=== PATIENT | female | born 1985 | race Caucasian/White ===

== ENCOUNTER 2018-08-09 09:51 | Emergency (ER) | payer OTHER ==
[2018-08-09] MEDS ORDERED: CEFTRIAXONE INJ 1000 MG VIAL IV ONE (10:52)
[2018-08-09] MEDS ORDERED: LIDOCAINE 1% INJ-PF (10 MG/ML) 30 ML SDV INJ ONE (10:53)
[2018-08-09] MEDS ORDERED: DOXYCYCLINE HYCLATE 100 MG TABLET PO ONE (11:54)
--- NOTE | 2018-08-09 11:55 | ER Document Report ---
ED Animal Bite - General Chief Complaint: Dog Bite Stated Complaint: DOG BITE Time Seen by Provider: 08/09/18 10:44 Notes: Patient is here for recheck of her injuries of the left face caused by a dog bite at work Sunday. She was holding the dog while blood was being drawn. She sustained a couple of deep wounds to the left lateral face and quite a few superficial scrapes. Patient went to the hospital in [place] where she had the wound sutured in 3 different locations with 4 sutures. She was placed on Augmentin which she started on Sunday night and has been taking it. It is the 875 Augmentin twice a day yesterday, she noted some puffiness of the left face but nothing else. This morning, her 3-year-old accidentally hit her left face and pus came out of 1 of the wounds. There is also significant increase in pain and redness and swelling of this area. TRAVEL OUTSIDE OF THE [place] IN LAST 30 DAYS: No - Related Data Allergies/Adverse Reactions: promethazine [From Phenergan] Allergy (Verified 08/10/18 22:20) Past Medical History - Social History Smoking Status: Current Some Day Smoker Chew tobacco use (# tins/day): No Frequency of alcohol use: Rare Drug Abuse: None Family History: Reviewed & Not Pertinent, Other Patient has suicidal ideation: No Patient has homicidal ideation: No Past Surgical History: Reports: Hx Thyroid Surgery, Hx Tonsillectomy Review of Systems - Review of Systems Notes: CONSTITUTIONAL : Denies fever. CARDIOVASCULAR: Denies chest pain. RESPIRATORY: Denies cough, chest congestion, or shortness of breath. GASTROINTESTINAL: Denies abdominal pain or nausea, vomiting, or diarrhea. GENITOURINARY: Denies difficulty or painful urinating, urinary frequency, blood in urine. Physical Exam - Vital signs Vitals: Temp Pulse Resp BP Pulse Ox 99.0 F 66 16 123/64 100 08/09/18 09:56 08/09/18 09:56 08/09/18 09:56 08/09/18 09:56 08/09/18 09:56 Interpretation: Normal. No: Febrile Notes: PHYSICAL EXAMINATION: GENERAL: Well-appearing, no acute distress. HEAD: Atraumatic, normocephalic. Left face with multiple small superficial abrasions but 3 deeper appearing wounds about 1 cm each in length and each of them has a suture with 1 of them having 2 sutures. NECK: Normal range of motion, supple. LUNGS: Breath sounds clear and equal bilaterally. HEART: Regular rate and rhythm without murmurs heard. ABDOMEN: Soft, nontender. No guarding or rebound or masses felt. Course - Re-evaluation Re-evalutation: 08/09/18 18:35 Patient was given a gram of Rocephin IV. Also started on doxycycline 100 mg in the ED. Offer the patient pain medication several times, but she has a 3-year-old infant that she has to get from daycare and does not know anyone else here she can call to come pick her up. - Vital Signs Vital signs: Temp Pulse Resp BP Pulse Ox 98.2 F 66 16 113/70 100 08/09/18 12:15 08/09/18 12:15 08/09/18 09:56 08/09/18 12:15 08/09/18 12:15 Procedures - Incision and Drainage Left Face I&D procedure: Sterile dressing applied Incision Method: Incision made by scalpel - No incision made. Patient's existing wounds were opened with the sharp points of scissors. I circled scalpel because I have to choose either scalpel or medial and neither was used in this case. Amount/type of drainage: Purulent droplets from the top wound in the middle wound. Notes: 08/09/18 18:37 All of the 3 deeper wounds that are about a centimeter each in length, or anesthetized minimally with Xylocaine and then opened with the points of scissors slipping into the cut and gently prying it open. Neither a needle or scalpel blade was used to open the wounds. Irrigated all 3 of these wounds gently after being open. My diagram says that 2 sutures were removed from the middle laceration, but 2 were actually removed from the most superior and posterior lesion and one from each of the other [address], there were a total of 4 sutures removed. All 3 of the wounds were able to be opened and drainage was obtained from 2 of the 3. Culture was obtained. Adult Head Front/Back picture: 1 - 1 suture removed from site #1 2 - 1 suture removed him site to 3 - 1 suture removed from site 3. Discharge - Discharge Clinical Impression: Infected dog bite of face, Abscess of face Condition: Stable Disposition: HOME, SELF-CARE Additional Instructions: Animal Bites Animal bites are often heavily contaminated with bacteria. In spite of thorough cleansing and proper treatment, these wounds frequently become infected. Bite wounds of the hands are especially prone to complications. Bites are dressed, if possible. Large wounds may require suturing after internal cleansing. Because of infection risk, some large wounds must remain unstitched. Your doctor is trained to advise you on the best treatment for your bite. Call the doctor at once if the wound becomes red, swollen, warm, increasingly painful, or if it begins to drain. Danger signs also include red streaks up the involved extremity, swollen glands in the groin or under the arm, or fever and chills. The risk of rabies from domestic animals is very low. Bats, sick animals, and wild animals may expose you to rabies. The physician, or the health department, will inform you if you will need to receive the rabies vaccine. ABSCESS of sutured laceration: You have an abscess (boil). This a pus-forming infection, usually due to staph. Some boils may be left to drain on their own, but most require lancing. From the time the tender lump first appears, it may be three or four days before the abscess is ready to carly. Local heat and rest help at this stage of treatment. An antibiotic may prevent spread of the infection. Once the abscess is opened, packing may be placed into it. This is done so pus is not sealed inside by premature closure of the cavity. The packing will be removed at your follow-up visit or you may be advised to remove it yourself at home. Sometimes this packing must be replaced a few times during healing. The wound will heal with surprisingly little scar. Depending on the size and location of an abscess, healing can take one to four weeks. You may shower and wash the area around the incision site two or three times a day. Antibiotics may be prescribed, but are usually not necessary after an abscess has been drained. If you develop fever, chills, worsening pain, or increasing swelling in the area, call the doctor or return immediately. Your sutures were removed. POST INCISION AND DRAINAGE: You have had an incision made to allow drainage of an abscess. The incision must remain open so that pus and debris can drain from the wound. If the abscess cavity is large, packing is placed. This keeps the tissues from collapsing and trapping pus inside, while the body shrinks the cavity. The packing may need to be replaced every day or two. The physician will instruct you on the packing. Keep a bulky dressing over the area. Replace it if it becomes saturated with blood or pus. Do not disturb the packing (if present). You may shower and cleanse the area with gentle soap and warm water two or three times a day. Local warmth may be soothing, and may promote faster healing. Return if you develop high fever or chills, or if you note spreading re dness, increasing swelling, or increasing tenderness. The area involving her face was explored and all 3 of the sutured lacerations were opened and pus was obtained out of the top one in the middle 1. MRSA CELLULITIS: You have an infection of your skin and underlying soft tissues called radha lulitis. This is due to bacteria, which can enter through any break in the skin, or even through an irritated hair follicle. Untreated, cellulitis will usually worsen and may form an abscess which requires draining. Although many bacterial organisms can cause cellulitis and abscess formations, the most likely bacteria is Methicillin-Resistant Staph Aureus, or MRSA for short. Antibiotics are required. Usually, warm packs or warm soaks, and elevation of the infected area are recommended. You should start getting better within 24 to 36 hours. Most infections respond quickly to the right medication. Follow-up care is important, however, to check for abscess (boil) formation, unsuspected foreign body, or resistant infection. If you develop fever, chills, or if the area of infection is becoming rapidly more swollen or painful, call the doctor at once. ORAL NARCOTIC MEDICATION: You have been given a prescription for pain control. This medication is a narcotic. It's best taken with food, as nausea can result if taken on an empty stomach. Don't operate machinery or drive within six hours of taking this medication. Do not combine this medicine with alcohol, or with any medication which can cause sedation (such as cold tablets or sleeping pills) unless you get permission from the physician. Narcotics tend to cause constipation. If possible, drink plenty of fluids and eat a diet high in fiber and fruits. Antinausea Medication You have been given a medication to suppress nausea and vomiting. This type of medication can be given as a shot, pill, or suppository. It will usually last for many hours. Pills and shots usually last six to eight hours, suppositories last about 12 hours. For the typical illness, only one or two doses of the medication may be necessary. Mild lightheadedness may occur. This type of medicine can cause drowsiness. Do not drive or operate dangerous machinery while under its infl uence. Do not mix with alcohol. See your doctor at once if you have muscle spasms or tightness, or uncontrollable motions (particularly of the neck, mouth, or jaw). Persistent vomiting or severe lightheadedness should also be evaluated by the physician. DOXYCYCLINE: Doxycycline (Vibramycin, Doryx) is an antibiotic of the tetracycline family. This type of drug is useful for infections of the respiratory tract and genital tract, and is sometimes used for intestinal infections. Unlike most tetracyclines, doxycycline can be taken with food. It is longer acting, and (usually) less prone to side effects than regular tetracycline. Tetracycline antibiotics can stain immature teeth and SHOULD NOT BE TAKEN BY CHILDREN, NURSING MOTHERS, OR WOMEN. Tetracyclines can make you more prone to sunburn. Abdominal cramping, nausea, and diarrhea are occasional side effects. Women may experience vaginal yeast infections. Call the doctor at once if you develop hives, itching, shortness of breath, or lightheadedness. Continue to apply warm compresses to your face for 20-30 minutes at a time. Repeat that process every couple of hours. Do not squeeze any of these areas. You can continue to washing them with the medication that you are advised to apply. FOLLOW-UP CARE: Most simple abscesses will not require a follow up visit. If you had packing placed in the abscess, remove it as instructed by the physician. If you have been referred to a physician for follow-up care, call the physicians office for an appointment as you were instructed or within the next two days. If you experience worsening or a significant change in your symptoms, return to the Emergency Department at any time for re-evaluation. Your face should be better tomorrow. It should not get worse this evening. If your face is significantly worse with worsening swelling, redness, pain, etc., return for us to reevaluate you later this evening. If your face is not worse this afternoon but just not doing any better tomorrow, return for us to reevaluate tomorrow morning. Continue to take your Augmentin until its finished. I am also adding doxycycline to your antibiotics. It is twice a day as well. Alternate taking them every 4 hours or so to get a total of 4 antibiotic pills daily. Prescriptions: Doxycycline Hyclate 100 mg PO BID #14 capsule Ondansetron [Zofran Odt 4 mg Tablet] 1 - 2 tab PO Q4H PRN #15 tab.rapdis PRN Reason: For Nausea/Vomiting Oxycodone HCl/Acetaminophen [Percocet 5-325 mg Tablet] 1 tab PO Q4H PRN #10 ta blet PRN Reason:
[2018-08-09 12:18] VITALS: BP 113/70
== END 2018-08-09 12:18 | disposition home or self-care (01) ==
LOC: ER 09:51
DX: S01.452A Open bite of left cheek and temporomandibular area, initial encounter (principal); L02.01 Cutaneous abscess of face; W54.0XXA Bitten by dog, initial encounter
CPT/HCPCS: 10060; 87070; 87205; 87077; J3490; J0696

== ENCOUNTER 2018-08-10 22:15 | Emergency (ER) | payer OTHER ==
[2018-08-10 22:31] VITALS: BP 124/63
--- NOTE | 2018-08-10 23:28 | ER Document Report ---
ED General - General Chief Complaint: Numbness Stated Complaint: LIP NUMBNESS Time Seen by Provider: 08/10/18 23:18 Notes: Patient is a 32-year-old female presents with complaint of a brief episode where her lips turned blue. Patient says that they were blue both top and bottom and on both the right and left side lips. She said that she applied a warm compress and the blueness went away. She said this is not recurred since. She was seen yesterday because of a dog bite to the left side of face. She a few days ago she had seen at [facility] and they placed a few stitches. She was given some redness and swelling and therefore the stitches removed yesterday and she will continue on Augmentin. She said her face is doing much better and the swelling is gone down and the redness is gone away. She again has had no further episodes of the blueness of her lips. She is not exactly sure what may have caused it. This has never happened in the past. No new pain or swelling to the face. Swelling is actually improved significantly since yesterday. Did not feel short of breath during this episode. TRAVEL OUTSIDE OF THE [place] IN LAST 30 DAYS: No - Related Data Allergies/Adverse Reactions: promethazine [From Phenergan] Allergy (Verified 08/10/18 22:20) Past Medical History - Social History Smoking Status: Never Smoker Frequency of alcohol use: None Drug Abuse: None Family History: Reviewed & Not Pertinent, Other Renal/ Medical History: Denies: Hx Peritoneal Dialysis Past Surgical History: Reports: Hx Thyroid Surgery, Hx Tonsillectomy Review of Systems - Review of Systems Notes: My Normal Review Basic REVIEW OF SYSTEMS: CONSTITUTIONAL : Denies fever, chills, or sweats. Denies recent illness. EENT: Episode of blueness to lips which resolved with warm compress. CARDIOVASCULAR: Denies chest pain. RESPIRATORY: Denies cough, cold, or chest congestion. Denies shortness of breath, difficulty breathing, or wheezing. NEUROLOGICAL: Denies altered mental status or loss of consciousness. Denies headache. Denies weakness or paralysis or loss of use of either side. Denies problems with gait or speech. Denies sensory or motor loss. ALL OTHER SYSTEMS REVIEWED AND NEGATIVE. Physical Exam - Vital signs Vitals: Temp Pulse Resp BP Pulse Ox 98.6 F 69 16 124/63 100 08/10/18 22:30 08/10/18 22:30 08/10/18 22:30 08/10/18 22:30 08/10/18 22:30 - Notes Notes: General Appearance: Well nourished, alert, cooperative, no acute distress, no obvious discomfort. Well-appearing. Vitals: reviewed, See vital signs table. Head: no swelling or tenderness to the head. Dog bite wound to the left side of face is healing appropriately without any redness or significant swelling. Eyes: PERRL, EOMI, Conjuctiva clear Mouth: No decreasd moisture. More color to the lips. No redness or swelling to the lips. No blueness to the lips. Neuro: speech clear, oriented x 3, normal affect, responds appropriately to questions. Course - Re-evaluation Re-evalutation: 08/10/18 23:38 Patient is well-appearing. I feel the patient is safe to be discharged home. I informed patient I do not know the exact cause of the brief episode of blueness to her lips. She did not feel short of breath. It resolved quickly with warm compress. She does not have any redness or swelling to the face at this time. She has no signs of arterial compromise on exam. At this time I feel she safe to be discharged home. I encouraged her return to ER if she has recurrence of blister Not improving warm compresses or if she has any redness or swelling to the face. Patient agrees with plan and will be discharged home. Dictation of this chart was performed using voice recognition software; therefor e, there may be some unintended grammatical errors. - Vital Signs Vital signs: Temp Pulse Resp BP Pulse Ox 98.6 F 69 16 124/63 100 08/10/18 22:30 08/10/18 22:30 08/10/18 22:30 08/10/18 22:30 08/10/18 22:30 Discharge - Discharge Clinical Impression: Feared complaint without diagnosis Condition: Good Disposition: HOME, SELF-CARE Additional Instructions: Please continue to take your antibiotic as prescribed. Please have a low threshold to return to the ER immediately if you develop spreading redness of the face. Blue lips not improving within 10 minutes. fevers, or if you feel unwell.
== END 2018-08-10 23:51 | disposition home or self-care (01) ==
LOC: ER 22:15
DX: R23.0 Cyanosis (principal); S01.85XD Open bite of other part of head, subsequent encounter; W54.0XXD Bitten by dog, subsequent encounter; Z88.8 Allergy status to other drugs, medicaments and biological substances
CPT/HCPCS: 99283